=== PATIENT | female | born 1990 | race African-American/Black ===

== ENCOUNTER → 2021-08-13 03:40 | Outpatient (CLI) | payer OTHER, SELFPAY ==
[2021-08-14 17:42] LABS: SARS-CoV-2 RNA PCR Negative
== END ==
PROVIDERS: PCP Family Medicine; Visit Provider Family Medicine
DX: R51.9 Headache, unspecified (principal); Z20.822 Contact with and (suspected) exposure to COVID-19
CPT/HCPCS: C9803; U0003; U0005